=== PATIENT | male | born 1965 | race Caucasian/White ===

== ENCOUNTER 2017-07-28 11:40 | Inpatient (IN) | payer MEDICARE, MEDICAID ==
[~2017-07-28] VITALS: Ht 172.7 cm; Wt 66.2 kg
--- NOTE | 2017-07-28 11:40 | NUR ---
C/O CHEST PAIN RADIATING TO BACK AND NECK, DIZZINESS SINCE THIS AM. BLOOD IN URINE X 3 DAYS. NAD NOTED. PT AAO X4, RR EVEN AND UNLABORED. VSS. PENDING MD MENDOSA.
[2017-07-28] MEDS ORDERED: IV NS 0.9% 1,000 ML BAG IV ONE (12:00)
[2017-07-28] MEDS ORDERED: ASPIRIN 325 MG TABLET PO ONE (12:00)
[2017-07-28] MEDS ORDERED: ONDANSETRON HCL/PF 4 MG/2 ML VIAL IVP ONE (12:00)
[2017-07-28] MEDS ORDERED: MAG HYDROX/AL HYDROX/SIMETH 30 ML UDC PO ONE (12:00)
[2017-07-28] MEDS ORDERED: FAMOTIDINE/PF INJ 20 MG/2 ML VIAL IV ONE ×2 (12:00→12:06)
[2017-07-28 12:04] LABS: BASOPHILS # (AUTO) 0.1 /CMM (0.0-0.2); BASOPHILS % (AUTO) 0.8 % (0.0-2.0); EOSINOPHILS % (AUTO) 0.2 % (0.0-6.0); HEMATOCRIT 39 % (39-51); HEMOGLOBIN 13.6 g/dL (13.5-17.5); LYMPHOCYTES # (AUTO) 1.3 /CMM (0.8-4.8); LYMPHOCYTES % (AUTO) 17.1 % (20.0-44.0); MEAN CORPUSCULAR HGB CONC 35 g/dl (31.0-36.0); MEAN CORPUSCULAR VOLUME 103 fL (80-96); MONOCYTES # (AUTO) 0.9 /CMM (0.1-1.30); MONOCYTES % (AUTO) 11.5 % (2.0-12.0); NEUTROPHILS # (AUTO) 5.2 /CMM (1.8-8.9); NEUTROPHILS % (AUTO) 70.4 % (43.0-81.0); PLATELET COUNT (AUTO) 222 /CMM (150-450); RDW COEFFICIENT OF VARIATION 14.8 (11.5-15.0); RED BLOOD CELL COUNT(AUTO) 3.75 MIL/uL (4.5-6.0); WHITE BLOOD COUNT (AUTO) 7.5 K/uL (4.3-11.0)
[2017-07-28] MEDS ORDERED: ONDANSETRON HCL/PF 4 MG/2 ML VIAL ONE (12:05)
[2017-07-28] MEDS ORDERED: ASPIRIN 325 MG TABLET ONE (12:05)
[2017-07-28] MEDS ORDERED: MAG HYDROX/AL HYDROX/SIMETH 30 ML UDC ONE (12:05)
[2017-07-28 12:14] LABS: CALCIUM, SERUM 8.7 mg/dL (8.5-10.1); CARBON DIOXIDE 24 mmol/L (21-32); CHLORIDE 104 mmol/L (98-107); CREATININE 0.9 mg/dL (0.6-1.3); GLUCOSE 111 mg/dL (74-106); POTASSIUM 3.8 mmol/L (3.5-5.1); SODIUM SERUM 142 mmol/L (136-145); UREA NITROGEN, BLOOD 13 mg/dL (7-18)
[2017-07-28 12:21] LABS: ALANINE AMINOTRANSFERASE 161 U/L (12-78); ALBUMIN 3.7 g/dL (3.4-5.0); ALKALINE PHOSPHATASE 65 U/L (46-116); ASPARTATE AMINOTRANSFERASE 331 U/L (15-37); BILIRUBIN,DIRECT 0.4 mg/dL (0.0-0.2); BILIRUBIN,TOTAL 0.9 mg/dL (0.2-1.0); LIPASE 388 U/L (73-393); TROPONIN I < 0.017 ng/mL (0.00-0.056)
[2017-07-28 12:26] LABS: ALCOHOL, BLOOD 201 mg/dL (0-0); B-TYPE NATRIURETIC PEPTIDE 33 PG/ML (0-125)
[2017-07-28] MEDS ORDERED: CLONIDINE HCL 0.1 MG TABLET ONE (13:28)
[2017-07-28] MEDS ORDERED: CLONIDINE HCL 0.1 MG TABLET PO ONE (13:30)
--- NOTE | 2017-07-28 13:31 | NUR ---
CALLED NURSING CLAM PICKER AND REQUESTED A TELE BED FOR THIS PT.
--- NOTE | 2017-07-28 13:37 | NUR ---
CALLED THE OFFICE OF DR PRESTON BUT NO ONE ANSWERS THE PHONE. WILL CALL BACK LATER.
[2017-07-28 13:48] LABS: APPEARANCE,URINE Clear (CLEAR); BILIRUBIN,URINE Negative (NEGATIVE); BLOOD, URINE Trace-intact Ery/uL (NEGATIVE); COLOR,URINE Yellow (YELLOW); KETONES,URINE 15 (NEGATIVE); LEUKOCYTE ESTERASE ,URINE Trace (NEGATIVE); NITRITE, URINE Positive (NEGATIVE); PROTEIN,URINE 30 mg/dl (NEGATIVE); UGLUCOSE Negative (NEGATIVE)
[2017-07-28] MEDS ORDERED: LEVE500T9 PO (13:51)
[2017-07-28] MEDS ORDERED: CLON0.5T12 PO (13:51)
[2017-07-28] MEDS ORDERED: CARV6.252 PO (13:51)
[2017-07-28] MEDS ORDERED: PARO-64 PO (13:51)
[2017-07-28] MEDS ORDERED: CLON0.1T PO (13:51)
[2017-07-28 13:53] LABS: RBC,URINE 0-2 /HPF (0-2)
[2017-07-28 13:54] LABS: BACTERIA,URINE Moderate /HPF (None Seen); SQUAMOUS EPITHELIAL CELL,UR Few /HPF (None Seen)
--- NOTE | 2017-07-28 13:59 | NUR ---
ON PHONE WITH DR PRESTON.
--- NOTE | 2017-07-28 14:05 | NUR ---
PAGED DR LIMA
--- NOTE | 2017-07-28 14:09 | NUR ---
PT IS ASSIGNED TO [facility]#: [id number], PT IS DIAGNOSED WITH CHEST PAIN, AND DR PRESTON IS THE ACCEPTING MD.
[2017-07-28] MEDS ORDERED: CEPHALEXIN MONOHYDRATE 500 MG CAPSULE PO ONE ×2 (14:27→14:30)
[2017-07-28 14:40] VITALS: BP 165/94
--- NOTE | 2017-07-28 14:45 | NUR ---
RN ONCOLOGY RESEARCH INITIAL NOTES: RECEIVED PT FROM ER, WITH DIAGNOSIS OF CHEST PAIN- R/O KS. UNDER CARE OF DR RHOADES. ALERT/ORIENTED X3. PLACED ON TELE MONITOR- SR. HR 94. HOSPITAL ORIENTATION GIVEN. VITAL SIGNS TAKEN. PLAN OF CARE DISCUSSED WITH PT. PT ON ROOM AIR, SATURATION 97%. NO SOB NOTED AT THIS TIME. RAC IV HEP LOCK INTACT. BED IN LOW, LOCKED POSITION, CALL LIGHT WITHIN REACH. ALL NEEDS ATTENDED. WILL CONTINUE TO MONITOR CLOSELY.
[2017-07-28] MEDS ORDERED: NITROGLYCERIN 0.4 MG/TAB BOTTLE SL PRN (15:00)
[2017-07-28] MEDS ORDERED: CARVEDILOL 3.125 MG TABLET PO SCH (15:00)
[2017-07-28] MEDS ORDERED: LORAZEPAM 0.5 MG TABLET PO PRN (15:00)
--- NOTE | 2017-07-28 15:45 | NUR ---
PARIMUTUEL CASHIER NOTES: PT ATTEMPTING TO GET OUT OF BED AND GO OUTSIDE AND SMOKE. EXPLAINED RISKS TO PT, BUT STILL INSISTING TO GO OUTSIDE AND SMOKE. PT UNSTABLE WHEN WALKING ON HIS OWN. DR IRELAND AND CLARENCE AWARE. NEW ORDER FOR PT TO HAVE SITTER AT BEDSIDE.
[2017-07-28 16:00] VITALS: BP 166/92
--- NOTE | 2017-07-28 16:00 | NUR ---
HOUSEHOLD MANAGER NOTES: CALLED DR LIMA AND DR PRESTON FOR ORDERS. PER DR IRELAND, IF PT WANTS TO SMOKE, HE MAY GO AGAINST MEDICAL ADVICE (AMA). Addendum: 07/28/17 at 1822 by MAGALY MALIK RN CALLED DR LIMA AND DR IRELAND FOR CARDIOLOGY AND PULMONOLOGY CONSULT. PER DR PETERSON ORDER.
--- NOTE | 2017-07-28 16:37 | NUR ---
GENERAL LABOR NOTE SPOKE WITH NOTIFIED THAT JULIANNE NO COMPLAIN WITH CARE ASKED TO COME AND SEE PATENT ,STATED THAT WILL CAME SOON , Addendum: 07/28/17 at 1640 by MAGALY MALIK RN DR IRELAND AT BEDSIDE ,EXAMINED PATIENT
--- NOTE | 2017-07-28 16:54 | NUR ---
RIB MATCHER AND FITTER NOTE ABDOMINAL US DONG NOW
[2017-07-28] MEDS ORDERED: CLONIDINE HCL 0.1 MG TABLET PO PRN (17:00)
[2017-07-28] MEDS: IPRATROPIUM NEB FS 0.5 MG/2.5 ML AMPUL.NEB NEB SCH ×2 (18:17→19:30)
--- NOTE | 2017-07-28 18:23 | NUR ---
SAGGER FILLER END NOTES: PT RESTING IN BED AT THIS TIME. NO C/O CHEST PAIN OR DIZZINESS AT THIS TIME. REFUSING DINNER. WILL CONTINUE TO MONITOR CLOSELY. CALL LIGHT WITHIN REACH. WILL ENDORSE TO PM SHIFT FOR CONTINUITY OF CARE.
--- NOTE | 2017-07-28 18:49 | NUR ---
PRODUCTION MACHINIST NOTES: PT C/O GENERALIZED BODY PAIN. NO PRN ORDERS IN PLACE. LEFT MESSAGE WITH DR PRESTON. AWAITING CALL BACK. WILL ENDORSE TO NEXT SHIFT IF NEEDED.
--- NOTE | 2017-07-28 19:16 | NUR ---
CORE FILER NOTES: DR. PRESTON CALLED BACK WITH NEW ORDER FOR MORPHINE SULFATE 1MG IVP Q2HRS PRN PAIN. ENDORSED TO NEXT SHIFT.
--- NOTE | 2017-07-28 19:22 | NUR ---
ADVANCED PRACTICE REGISTERED NURSE NOTES: SPOKE WITH DR. CANTU, TITLE [address] LIMA. MADE HIM AWARE OF CARDIOLOGY CONSULT FOR PT.
[2017-07-28] MEDS ORDERED: MORPHINE SULFATE INJ 2 MG/ML DISP.SYRIN IVP PRN (19:30)
[2017-07-28 20:00] VITALS: BP 164/91
--- NOTE | 2017-07-28 20:00 | NUR ---
TELE 1 RN NOTE PT IN BED AWAKE. A/O X 3 NO SOB, NO DISTRESS OR DISCOMFORT NOTED. DENIES PAIN. PT WANTS TO GO HOME IN THE MORNING. LITTLE ANXIOUS. AT BED SIDE. SL RAC #20 G INTACT AND PATENT. SIDE RAILS UP X 3 AND CALL LIGHT WITHIN REACH. CONTINUE TO MONITOR HIM. Addendum: 07/28/17 at 2056 by DAVE PEREZ RN ACCIDENTALY CHARTED UNDER NURSE MCKENZIE NAME.
--- NOTE | 2017-07-28 20:06 | NUR ---
RT PT REFUSED HHN TX AT THIS TIME, HE WANTS TO CONTINUE SLEEPING. NO SOB OR DISTRESS NOTED.
[2017-07-28] MEDS: LEVETIRACETAM (250 MG) 250 MG TABLET PO SCH (20:24)
--- NOTE | 2017-07-28 20:25 | NUR ---
TELE 1 RN NOTE PT IN BED ANXIOUS, ATIVAN 0.5 MG PO GIVEN, ALSO CATAPRES 0.1 MG PO GIVEN FOR B/P 164/91. CONTINUE TO MONITOR HIM.
--- NOTE | 2017-07-28 21:15 | NUR ---
TELE [address] PRESTON VISITED THE PT, AND WROTE NEW ORDERS, ORDERS NOTED AND CARRIED OUT.
[2017-07-28] MEDS: Magnesium 1GM/D5W 100ML PREMIX 100 ML IV SCH ×2 (21:41→22:39)
[2017-07-28] MEDS ORDERED: IV D5/0.45 NACL 1,000 ML IV SCH (22:00)
[2017-07-28] MEDS ORDERED: CLONIDINE HCL 0.2MG/24H PTWK 1 EA PATCH TD SCH (22:00)
[2017-07-28] MEDS: THIAMINE HCL 100 MG TABLET PO SCH (22:06)
[2017-07-28] MEDS: PYRIDOXINE HCL 50 MG TABLET PO SCH (22:07)
[2017-07-28] MEDS: CYANOCOBALAMIN 1,000 MCG/ML VIAL IM SCH (22:09)
[2017-07-28] MEDS: CHLORDIAZEPOXIDE HCL 10 MG CAPSULE PO SCH (22:16)
[2017-07-28] MEDS: NICOTINE PATCH (14MG) 14 MG PATCH.TD24 TD SCH (22:16)
[2017-07-28] MEDS: CARVEDILOL 12.5 MG TABLET PO SCH (22:17)
[2017-07-29] VITALS: BP 135/79
[2017-07-29] MEDS: IPRATROPIUM NEB FS 0.5 MG/2.5 ML AMPUL.NEB NEB SCH ×2 (01:19→07:35)
[2017-07-29 04:00] VITALS: BP 137/71
[2017-07-29 06:33] LABS: CALCIUM, SERUM 8.3 mg/dL (8.5-10.1); CREATININE 0.8 mg/dL (0.6-1.3); POTASSIUM 3.9 mmol/L (3.5-5.1)
[2017-07-29 06:38] LABS: ALBUMIN 3.1 g/dL (3.4-5.0); BILIRUBIN,TOTAL 1.2 mg/dL (0.2-1.0); TOTAL PROTEIN, SERUM 6.8 g/dL (6.4-8.2)
[2017-07-29 06:54] LABS: ALBUMIN 3.1 g/dL (3.4-5.0); BILIRUBIN,DIRECT 0.4 mg/dL (0.0-0.2); BILIRUBIN,TOTAL 1.2 mg/dL (0.2-1.0); TOTAL PROTEIN, SERUM 6.8 g/dL (6.4-8.2)
--- NOTE | 2017-07-29 06:59 | NUR ---
TELE 1 RN NOTE PT IN BED AWAKE. NO DISTRESS OR DISCOMFORT NOTED. NO SS OF PAIN NOTED. PT ASKED TO REMOVE IVF, STATES "IT IS ENOUGH" TRIED TO EXPLAIN IT TO HIM BUT HE DON'T WANT TO LISTEN. ON TELE SR WITH JUNCTIONAL HR 80'S. SIDE RAILS UP X 2 AND CALL LIGHT WITHIN REACH. WILL ENDORSE TO DAY SHIFT NURSE FOR CONTINUE CARE.
[2017-07-29] MEDS ORDERED: PANTOPRAZOLE 40 MG TABLET.DR PO SCH (07:30)
[2017-07-29 07:31] LABS: BASOPHILS % (AUTO) 0.4 % (0.0-2.0); EOSINOPHILS % (AUTO) 1.3 % (0.0-6.0); HEMATOCRIT 36 % (39-51); HEMOGLOBIN 12.6 g/dL (13.5-17.5); LYMPHOCYTES % (AUTO) 19.9 % (20.0-44.0); MEAN CORPUSCULAR HGB CONC 35 g/dl (31.0-36.0); MEAN CORPUSCULAR VOLUME 104 fL (80-96); MONOCYTES # (AUTO) 0.4 /CMM (0.1-1.30); MONOCYTES % (AUTO) 8.7 % (2.0-12.0); NEUTROPHILS # (AUTO) 3.4 /CMM (1.8-8.9); NEUTROPHILS % (AUTO) 69.7 % (43.0-81.0); PLATELET COUNT (AUTO) 181 /CMM (150-450); RDW COEFFICIENT OF VARIATION 14.9 (11.5-15.0); RED BLOOD CELL COUNT(AUTO) 3.47 MIL/uL (4.5-6.0); WHITE BLOOD COUNT (AUTO) 4.8 K/uL (4.3-11.0)
[2017-07-29 08:00] VITALS: BP 140/85
[2017-07-29] MEDS: THIAMINE HCL 100 MG TABLET PO SCH (08:35)
[2017-07-29] MEDS: NICOTINE PATCH (14MG) 14 MG PATCH.TD24 TD SCH ×3 (08:35→09:09)
[2017-07-29] MEDS: LEVETIRACETAM (250 MG) 250 MG TABLET PO SCH (08:35)
[2017-07-29] MEDS: PYRIDOXINE HCL 50 MG TABLET PO SCH (08:36)
[2017-07-29] MEDS: CHLORDIAZEPOXIDE HCL 10 MG CAPSULE PO SCH (08:36)
[2017-07-29] MEDS: CYANOCOBALAMIN 1,000 MCG/ML VIAL IM SCH (08:36)
[2017-07-29 08:37] VITALS: BP 140/85
[2017-07-29] MEDS: CARVEDILOL 12.5 MG TABLET PO SCH (08:37)
[2017-07-29] MEDS ORDERED: PAROXETINE HCL 20 MG TABLET PO SCH (09:00)
[2017-07-29] MEDS ORDERED: TAMSULOSIN 0.4 MG CAP.SR.24H PO SCH (09:00)
[2017-07-29] MEDS ORDERED: ATORVASTATIN 40 MG TABLET PO SCH (09:00)
[2017-07-29] MEDS ORDERED: LEVOFLOXACIN (500MG) 500 MG TABLET PO SCH (09:00)
[2017-07-29] MEDS ORDERED: ENALAPRIL MALEATE (5 MG) 5 MG TABLET PO SCH (09:00)
[2017-07-29] MEDS ORDERED: ASPIRIN EC 81 MG TABLET.DR PO SCH (09:00)
--- NOTE | 2017-07-29 09:05 | NUR ---
RN NOTES: PT LEAVING AGAINST MEDICAL ADVICE. DR PRESTON AND DR IRELAND AT BEDSIDE EXPLAINING TO PT RISK OF LEAVING AMA. PT ASSISTED WITH WHEELCHAIR TO MEET WITH FAMILY IN THE LOBBY. PT REFUSED EDUCATIONAL MATERIALS AND REFUSED VERBAL TEACHINGS. HL ON R AC REMOVED.
== END 2017-07-29 09:20 | disposition left against medical advice (07) | DRG 206 ==
LOC: ER 11:44 → TELE1 14:18
PROVIDERS: ADMIT Family Medicine; ATTEND Family Medicine
DX: M94.0 Chondrocostal junction syndrome [Tietze] (principal); F10.231 Alcohol dependence with withdrawal delirium; N39.0 Urinary tract infection, site not specified; I16.1 Hypertensive emergency; F07.81 Postconcussional syndrome; E83.51 Hypocalcemia; S09.90XA Unspecified injury of head, initial encounter; K70.10 Alcoholic hepatitis without ascites; J44.9 Chronic obstructive pulmonary disease, unspecified; W10.9XXA Fall (on) (from) unspecified stairs and steps, initial encounter; S00.12XA Contusion of left eyelid and periocular area, initial encounter; Y92.009 Unspecified place in unspecified non-institutional (private) residence as the place of occurrence of the external cause; G40.909 Epilepsy, unspecified, not intractable, without status epilepticus; Z82.49 Family history of ischemic heart disease and other diseases of the circulatory system; Z79.899 Other long term (current) drug therapy; Z90.2 Acquired absence of lung [part of]; E86.0 Dehydration; E78.5 Hyperlipidemia, unspecified; Y90.7 Blood alcohol level of 200-239 mg/100 ml; S50.11XA Contusion of right forearm, initial encounter; S30.0XXA Contusion of lower back and pelvis, initial encounter; F17.200 Nicotine dependence, unspecified, uncomplicated; F32.9 Major depressive disorder, single episode, unspecified; F43.20 Adjustment disorder, unspecified; G31.84 Mild cognitive impairment of uncertain or unknown etiology; R63.4 Abnormal weight loss; Z68.22 Body mass index [BMI] 22.0-22.9, adult; N40.0 Benign prostatic hyperplasia without lower urinary tract symptoms; Z91.19 Patient's noncompliance with other medical treatment and regimen
CPT/HCPCS: 36415; 71045-TC; 76705-TC; 80048-TC; 80053-TC; 80076-TC; 81000-TC; 82150-TC; 82378; 83540-TC; 83690-TC; 83735-TC; 83880; 84443-TC; 84484-TC; 85025-TC; 87081-TC; 87086-TC; 87186-TC; A4606; G0480; J2405; J3420; J3475; J3490; J7030; J7050; Z7610

== ENCOUNTER 2017-12-13 11:38 | Emergency (ER) | payer MEDICARE, MEDICAID ==
[~2017-12-13] VITALS: Ht 170.2 cm; Wt 61.7 kg
[~2017-12-13 11:38] MED LIST: CLON0.1T PO; LEVE500T9 PO; PARO-64 PO
--- NOTE | 2017-12-13 11:53 | NUR ---
52 Y/O MALE PLACED IN BED 2 C/O INTERMITENT NOSE BLEEDS FOR A WEEK. PT ALSO HAS A HX OF TB AND WANTS HIS CHEST CHECKED FOR INFECTION.
--- NOTE | 2017-12-13 12:21 | NUR ---
PT MEDICALLY SCREENED. NO FINDINGS. ACI GIVEN. DISCHARGED HOME.
[2017-12-13 12:23] VITALS: BP 158/98
== END 2017-12-13 12:24 | disposition home or self-care (01) ==
LOC: ER 11:44
DX: R04.0 Epistaxis (principal); I10 Essential (primary) hypertension; E78.5 Hyperlipidemia, unspecified; F10.10 Alcohol abuse, uncomplicated; F17.200 Nicotine dependence, unspecified, uncomplicated; Y90.9 Presence of alcohol in blood, level not specified; Z86.11 Personal history of tuberculosis; Z87.440 Personal history of urinary (tract) infections
CPT/HCPCS: 71045-TC; A4606; Z7610